=== PATIENT | female | born 2000 | race Caucasian/White ===

== ENCOUNTER 2023-05-24 09:45 | Outpatient (RCR) | payer OTHER, MEDICAID, SELFPAY ==
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
--- NOTE | 2023-03-29 09:30 | PT.OTN ---
Current Diagnoses Other specified disorders of muscle (03/29/23) Physical Therapy Treatment Note PT-OP-A Visit Information Start: 02/12/23 17:27 Freq: Status: Active Protocol: Document 03/29/23 08:03 LRN (Rec: 03/29/23 09:30 LRN [id number]) Out-Patient Physical Therapy Visit Information Visit Information Visit Type Treatment Note Visit Start Time 08:03 Visit Stop Time 09:00 Total Visit Minutes 57 Visit Number 12/29 Evaluation Information Evaluation Date 02/19/23 Precautions Precautions Seasonal allergies, intermittent jaw pain ( occurred after jumping out of a plane). PT-OP-B Current Condition Start: 02/12/23 17:27 Freq: Status: Active Protocol: Document 02/19/23 08:14 LRN (Rec: 02/19/23 09:32 LRN [id number]) Current Condition History of Current Condition Onset Date Age 18, 5 yrs ago. Current Complaints Sharp stabbing pain with palpation that can last for days. History of Current Condition Injury at age 18, had intense rubbing (foreplay), then sudden onset of pain in clitoral weber region (4 yrs ago) leaving it red and sore. Had not been a problem until recently is having pain. Is seeing a wool spotter and hoping PT might help to loosen her PF. States the nerve is not damaged but irritated. When stressed or depressed, feels more pain. 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 Has used topical cream that helped decrease the pain. Used Aquafor to help with skin health that helps. No hot tubbing. Won't swim except in lakes. 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 Treatment Goals Patient/Caregiver Goals Pt goal is to reduce the clitoral weber pain and learn self care to reduce or eliminate the pain. Personal Factors Other Personal Factors That May Effect No history of sexual Therapy/Recovery intercourse; therefore guarded in nature, hx of vaginal vaginosus. PT-OP-C Subjective Start: 02/12/23 17:27 Freq: Status: Active Protocol: Document 03/29/23 08:03 LRN (Rec: 03/29/23 09:30 LRN [id number]) OP-PT Subjective Patient Comments Patient Comments States the hair is irritating. The Aquaphor now is irrirating to put on clitoris. States the relatoinship prospect is causing stress. Had stressful situation with grandparents gone (needs personal support). States with stress the cold with hot/ cold was uncomfortable. PT-OP-I Pelvic Floor Start: 02/12/23 17:27 Freq: Status: Active Protocol: Document 02/19/23 08:14 LRN (Rec: 02/19/23 09:32 LRN [id number]) Pelvic Floor Assessment Urine Other Urinary Symptoms Relief of pain with urination. Full bladder has more sensitivity of clitoral weber when in pain all the time. Bowel Bowel Movement Frequency 1 Quinter Stool Chart Type 1-7 4 Pelvic Clock Pelvic Clock 12-3 Tenderness,Tightness Pelvic Clock 3-6 Tenderness,Tightness Pelvic Clock 6-9 Tenderness,Tightness Pelvic Clock 9-12 Tenderness,Tightness Pelvic Clock Other Tight in superficial ms and tender everywhere on the deeper PF muscles. Comments Pelvic Floor Comments Sharp stabbing pain with light touch, R side of weber more sensitive under. PT-OP-J Posture/Palpation/Skin Start: 02/12/23 17:27 Freq: Status: Active Protocol: Document 02/19/23 08:14 LRN (Rec: 02/19/23 09:32 LRN [id number]) Posture Evaluation Position Standing L-Spine Posture Increased Lordosis Comments Posture Comments Head tilt left, High L shoulder and scapula, increased lordosis, PT-OP-K Range of Motion Start: 02/12/23 17:27 Freq: Status: Active Protocol: Document 02/19/23 08:14 LRN (Rec: 02/19/23 09:32 LRN [id number]) Lumbar Spine Range of Motion Lumbar Spine Active Percentage Testing Position Standing Flexion 100 Extension 100 Rotation Left 100 Rotation Right 100 Lateral Flexion Left 100 Lateral Flexion Right 100 ROM Limitations Soft Tissue Tightness Hip Goniometric Range of Motion Hip Right Passive Testing Position Supine Abduction 30 Internal Rotation 45 External Rotation 75 Left Passive Testing Position Supine Abduction 30 Internal Rotation 35 External Rotation 85 PT-OP-M Strength Start: 02/12/23 17:27 Freq: Status: Active Protocol: Document 02/19/23 08:14 LRN (Rec: 02/19/23 09:32 LRN [id number]) Trunk Strength Trunk Manual Muscle Testing Core Stabilization Generally 5/5, pt able to maintain stability during all positioning for MMT of hips. Hip Strength Hip Manual Muscle Testing Right Comments All muscle groups 5/5 Left Comments All muscle groups 5/5 PT-OP-Q Treatments Start: 02/12/23 17:27 Freq: Status: Active Protocol: Document 03/29/23 08:03 LRN (Rec: 03/29/23 09:30 LRN [id number]) Manual Therapy Treatment Soft Tissue Mobilization Hip Adductors Body Location Hip Adductors distal to pubic bone Mobilization Type Myofascial Release, Oscillations Intensity/Depth Moderate Body Position Supine Comments R tigher than L. Abdomen Body Location Abdomen in area above pubic bone Mobilization Type Myofascial Release,Sustained Pressure Body Position Sup w/bolster Comments 15' Tight on R side; knee rolls to left along with Sideglide up and to the left. PF Body Location External w/focus on L side Mobilization Type Sustained Pressure Intensity/Depth superficial>moderate Body Position Hooklie Comments 15' L side increased redness of Labia Majora, mild edema in R mons pubis, small tender region in presence of white dot at clitoris that was place of pt's application of estrogen cream. 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 Discussed at length looking at lower body 1/2 to get familiar normal body tissues. Educated pt in self PF STM near clitoris for sideglide, upglide and rotation. Discussed other possible uses for skin health including coconut oil. Pt to discuss with referring practioner other natural forms of treatment for skin health. Discussed external information resources to include the hive podcast and suggestion of sex therapist that deals withn physical women's health conditions. Activities Self-Care/Home Management Activities I/S pt to perform self stretch to PF near clitoris for sideglide, upglide and rotation. Recommended pt seek yoga for exercise and encouraged abdominal stretching (upward dog). PT-OP-T Assessment and Plan Start: 02/12/23 17:27 Freq: Status: Active Protocol: Document 03/29/23 08:03 LRN (Rec: 03/29/23 09:30 LRN [id number]) Physical Therapy Assessment Goals Three Impairment PF tightness with pain on palpation Impairment PUF score 16 Short Term Goal (STG) Pt will be able to get full relaxation after PF contraction and educated in self stretching with wand. 03/05/23: Pt had minimal to no pain with palpatioin of the PF; therefore pt did not need education in self stretching with wand. 03/12/23: XS wand issued. Pt I /S in use of wand for light sustained pressure at external hymen. Hymen closed and tender to touch. STG Duration 03/28/23 progressed 03/12/23 ( needs ed in relaxation after PF ><) Motion Picture Set Up Worker Goal (LTG) Decrease PF pain with PF contraction around the PF clock to minimal areas of tenderness. 03/18/23: Pt reporting minimal discomfort around the PF clock. LTG Duration 04/30/23 (03/18/23: 1x reporting of just discomfort) Two Impairment Clitoral weber nerve pain. Impairment Pain rated 3/10 Short Term Goal (STG) Pt educated in self care pain management techniques (Cold compress, coconut oil) and vulvar/genital care. 03/05/23: Pt verbally educated in self care pain management with use of cold compress and discussion of using warm/cold compress, and discussed vulvar /gential care per education handout. 03/18/23: Pt using aquaphor ( vs coconut oil) for her pain/ dryness that she feels is working, and is doing hot/cold (compress) treatment to clitoris while in shower daily . STG Duration 03/28/23 (03/18/23: MET GOAL) Motion Picture Set Up Worker Goal (LTG) Reduce clitoral weber sharp pain with palpation. 03/29/23: Pain, but no did not c/o sharp pain. LTG Duration 04/30/23 improving 03/29/23 One Impairment Pt lacks an independent self care HEP. Short Term Goal (STG) Pt educated in proper transfers to lessen core abdominal pressure and vagal n relaxation techniques. 02/26/23: Educated pt in deep breathing for downtraining of sympathetic nervous system to reduce PF pain. STG Duration 03/28/23 progressed 02/26/23 (need transfer trng to lessen core abd press) Senior Care Goal (LTG) Pt will be independent in a self care HEP for PF relaxation and self care self care to reduce or eliminate PF pain (deep breathing and mindfulness education). 02/26/23: Pt I/S in use of deep breathing for downtraining of sympathetic nervous system to reduce PF pain. LTG Duration 04/30/23 progressed 02/26/23 ( need mindfulness education) Assessment Summary Assessment Pt initially with clitoral weber, labial minora & labial majora pain, mild redness at vaginal entrance laterally. Today, R abdomen is tight & L PF tight. L sided increase in redness of Labia Majora ( minora no redness), mild edema in R mons pubis, & tender region in presence of white dot at clitoris that may be where pt's application of estrogen cream was located. Pt to discuss with referring practioner possible other forms of treatment for skin health due to aquaphor being an irritant when dry and estrogen cream on clitoris where her pain is. Physical Therapy Plan Frequency and Duration Frequency of Treatment 1x/Week Duration of treatment (weeks) 10 Plan of Care Start Date 02/19/23 Plan of Care End Date 04/30/23 Next Visit Focus/Plan Next Note Type Treatment Note Next Visit Plan Next: Start with abdominal ( sphinx) and hip AD stretching. Recheck stretching with wand (get full relaxation after PF contraction-STG #3) and check for L sided areas of redness of external PF (STG #3), and check for abdominal soft tissue mobility (urachus) for symmetry. Education: transfer trng to lessen core abd pressure (STG #1). Educate in PF downtraining with mindfulness and vagal nerve relaxation/downtraining (STG #1). Issue HO for hip adductor & sphinx (abdominal) stretch, and if needed hot/cold handout (modified to warm/cool compress). Discuss squatting and lifting, sit to stand, and moving in bed using breathwork Discuss water intake. Monitor to improve L hip IR, R hip ER mobility and adductor tension. POC: PF/core relaxation and decr vagus n stim to decrease clitoral weber pain; improve hip mobility (L hip IR, R hip ER),
--- NOTE | 2023-04-09 10:29 | PT.OTN ---
Current Diagnoses Other specified disorders of muscle (04/09/23) Physical Therapy Treatment Note PT-OP-A Visit Information Start: 02/12/23 17:27 Freq: Status: Active Protocol: Document 04/09/23 08:07 LRN (Rec: 04/09/23 10:29 LRN [id number]) Out-Patient Physical Therapy Visit Information Visit Information Visit Type Treatment Note Visit Start Time 08:07 Visit Stop Time 08:55 Total Visit Minutes 50 Visit Number 12/29 Evaluation Information Evaluation Date 02/19/23 Precautions Precautions Seasonal allergies, intermittent jaw pain ( occurred after jumping out of a plane). PT-OP-B Current Condition Start: 02/12/23 17:27 Freq: Status: Active Protocol: Document 02/19/23 08:14 LRN (Rec: 02/19/23 09:32 LRN [id number]) Current Condition History of Current Condition Onset Date Age 18, 5 yrs ago. Current Complaints Sharp stabbing pain with palpation that can last for days. History of Current Condition Injury at age 18, had intense rubbing (foreplay), then sudden onset of pain in clitoral weber region (4 yrs ago) leaving it red and sore. Had not been a problem until recently is having pain. Is seeing a computer numeric control setter and hoping PT might help to loosen her PF. States the nerve is not damaged but irritated. When stressed or depressed, feels more pain. 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 Has used topical cream that helped decrease the pain. Used Aquafor to help with skin health that helps. No hot tubbing. [place] swim except in [place]. 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 Treatment Goals Patient/Caregiver Goals Pt goal is to reduce the clitoral weber pain and learn self care to reduce or eliminate the pain. Personal Factors Other Personal Factors That May Effect No history of sexual Therapy/Recovery intercourse; therefore guarded in nature, hx of vaginal vaginosus. PT-OP-C Subjective Start: 02/12/23 17:27 Freq: Status: Active Protocol: Document 04/09/23 08:07 LRN (Rec: 04/09/23 10:29 LRN [id number]) OP-PT Subjective Patient Comments Patient Comments [place] she has an irritated nerve. Tried doing pressure point treatmnets. Using med for past 2 days: meniciprin for the laceration, the L side is most sensitive areas. Now only provoked pain, when touching. Pain not present all the time. Neck feels constantly stiff. Has increased her fluid intake. PT-OP-I Pelvic Floor Start: 02/12/23 17:27 Freq: Status: Active Protocol: Document 04/09/23 08:07 LRN (Rec: 04/09/23 10:29 LRN [id number]) Pelvic Floor Assessment Comments Pelvic Floor Comments At intersection of Labia majora pt had pain with release of gentle pressure. No pain around surrounding areas. L side of Labia Major appeared smaller at top and tissue mildly dry. PT-OP-J Posture/Palpation/Skin Start: 02/12/23 17:27 Freq: Status: Active Protocol: Document 02/19/23 08:14 LRN (Rec: 02/19/23 09:32 LRN [id number]) Posture Evaluation Position Standing L-Spine Posture Increased Lordosis Comments Posture Comments Head tilt left, High L shoulder and scapula, increased lordosis, PT-OP-K Range of Motion Start: 02/12/23 17:27 Freq: Status: Active Protocol: Document 02/19/23 08:14 LRN (Rec: 02/19/23 09:32 LRN [id number]) Lumbar Spine Range of Motion Lumbar Spine Active Percentage Testing Position Standing Flexion 100 Extension 100 Rotation Left 100 Rotation Right 100 Lateral Flexion Left 100 Lateral Flexion Right 100 ROM Limitations Soft Tissue Tightness Hip Goniometric Range of Motion Hip Right Passive Testing Position Supine Abduction 30 Internal Rotation 45 External Rotation 75 Left Passive Testing Position Supine Abduction 30 Internal Rotation 35 External Rotation 85 PT-OP-M Strength Start: 02/12/23 17:27 Freq: Status: Active Protocol: Document 02/19/23 08:14 LRN (Rec: 02/19/23 09:32 LRN [id number]) Trunk Strength Trunk Manual Muscle Testing Core Stabilization Generally 5/5, pt able to maintain stability during all positioning for MMT of hips. Hip Strength Hip Manual Muscle Testing Right Comments All muscle groups 5/5 Left Comments All muscle groups 5/5 PT-OP-Q Treatments Start: 02/12/23 17:27 Freq: Status: Active Protocol: Document 04/09/23 08:07 LRN (Rec: 04/09/23 10:29 [facility] [id number]) Therapeutic Exercises Supine Exercises Vagus n stim Supine Exercise Name Umm's, Ahhh's in neutral and neck ext. Side left Reps/Minutes 9' Comments Cuing for vibtration in throat . Trying low (good) and high sounds(good ah) Scalene neck stretches Supine Exercise Name Passive Scalene anterior & medial stretch Side bilateral Reps/Minutes 12' Comments L tighter than R. Cuing for 3 breath stretch when positioned Piriformis stretch Supine Exercise Name Piriformis stretch - Myokinesthetic stretch Side left Reps/Minutes 3' Comments One time trP not reproduced Manual Therapy Treatment Soft Tissue Mobilization Anterior trunk in Prone Body Location L Anterior lower trunk: Stabilized Sacrum, w/active foot drops to R Mobilization Type Myofascial Release Body Position Prone Abdomen Body Location Lower abdomen > inferior pubic bone Mobilization Type Myofascial Release Intensity/Depth Superficial Body Position Legs on bolster & hooklying Comments STM abdomen: superior glide f/ b active L>R hip rotation and BKFO>IR of hips. Self-Care/Home Management Treatment Education Other Education Discussed use of more lubrication for self assessment of pain under clitoris to minimize discomfort from finger sticking to issues. Recommended pt talk to physician regarding tissue dryness in the area. Activities Self-Care/Home Management Activities I/S pt to add general ex to her home program to increase blood flow and tissue health to the area as the pt reports increase in stim results in stretch discomfort in the area . PT-OP-T Assessment and Plan Start: 02/12/23 17:27 Freq: Status: Active Protocol: Document 04/09/23 08:07 LRN (Rec: 04/09/23 10:29 [facility] [id number]) Physical Therapy Assessment Goals Three Impairment PF tightness with pain on palpation Impairment PUF score 16 Short Term Goal (STG) Pt will be able to get full relaxation after PF contraction and educated in self stretching with wand. 03/05/23: Pt had minimal to no pain with palpatioin of the PF; therefore pt did not need education in self stretching with wand. 04/09/23: Pt I/S to focus on PF relaxation after PF contraction ex's. 03/12/23: XS wand issued. Pt I /S in use of wand for light sustained pressure at external hymen. Hymen closed and tender to touch. STG Duration 03/28/23 progressed 04/09/23 (needs full relaxation after PF ><) [facility] Goal (LTG) Decrease PF pain with PF contraction around the PF clock to minimal areas of tenderness. 03/18/23: Pt reporting minimal discomfort around the PF clock. LTG Duration 04/30/23 (03/18/23: 1x reporting of just discomfort) Two Impairment Clitoral weber nerve pain. Impairment Pain rated 3/10 Short Term Goal (STG) Pt educated in self care pain management techniques (Cold compress, coconut oil) and vulvar/genital care. 03/05/23: Pt verbally educated in self care pain management with use of cold compress and discussion of using warm/cold compress, and discussed vulvar /gential care per education handout. 03/18/23: Pt using aquaphor ( vs coconut oil) for her pain/ dryness that she feels is working, and is doing hot/cold (compress) treatment to clitoris while in shower daily . STG Duration 03/28/23 (03/18/23: MET GOAL) Pill Machine Operator Goal (LTG) Reduce clitoral weber sharp pain with palpation. 03/29/23: Pain, but no did not c/o sharp pain. LTG Duration 04/30/23 improving 03/29/23 One Impairment Pt lacks an independent self care HEP. Short Term Goal (STG) Pt educated in proper transfers to lessen core abdominal pressure and vagal n relaxation techniques. 02/26/23: Educated pt in deep breathing for downtraining of sympathetic nervous system to reduce PF pain. 04/09/23: Pt educated in vagal nerve relaxation/downtraining . STG Duration 03/28/23 progressed 04/09/23 (need transfer trng to lessen core abd press) Pill Machine Operator Goal (LTG) Pt will be independent in a self care HEP for PF relaxation and self care self care to reduce or eliminate PF pain (deep breathing and mindfulness education). 02/26/23: Pt I/S in use of deep breathing for downtraining of sympathetic nervous system to reduce PF pain. LTG Duration 04/30/23 progressed 02/26/23 ( need mindfulness education) Assessment Summary Assessment Pt presents with no c/o pelvic pain except with pressure release off of intersection of Labia Majora. Pt reporting she has increased her fluid intake. She has a stiff L neck and possible vagal nerve restriction; tightness of L hip muscles. Pt may be sligly swollen in area of clitoris dry tissues causing pain on release of pressure. Pt having less pain overall. Physical Therapy Plan Frequency and Duration Frequency of Treatment 1x/Week Duration of treatment (weeks) 10 Plan of Care Start Date 02/19/23 Plan of Care End Date 04/30/23 Next Visit Focus/Plan Next Note Type Treatment Note Next Visit Plan Next: Education: transfer trng to lessen core abd pressure (STG #1). Start manual with self abdominal stretch (sphinx) and hip AD, L Piriformis/lat hip stretching. Review vagal nerve relaxation/downtraining. Recheck stretching with wand ( get full relaxation after PF contraction-STG #3) and check for L sided areas of redness of external PF (STG #3), Assess for LTG #3. Check for abdominal soft tissue mobility (urachus) for symmetry. Educate in PF downtraining with mindfulness (STG #1). Issue HO for hip adductor & sphinx (abdominal) stretch. Discuss squatting and lifting, sit to stand, and moving in bed using breathwork. Monitor to improve L hip IR, R hip ER mobility and adductor tension. POC: PF/core relaxation and decr vagus n stim to decrease clitoral weber pain; improve hip mobility (L hip IR, R hip ER),
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
--- NOTE | 2023-04-30 18:04 | PT.OTN ---
Current Diagnoses Other specified disorders of muscle (04/30/23) Physical Therapy Treatment Note PT-OP-A Visit Information Start: 02/12/23 17:27 Freq: Status: Active Protocol: Document 04/30/23 09:30 LRN (Rec: 04/30/23 10:24 LRN [id number]) Out-Patient Physical Therapy Visit Information Visit Information Visit Type Progress Note Visit Start Time 09:30 Visit Stop Time 10:15 Total Visit Minutes 45 Visit Number 03/31 Evaluation Information Evaluation Date 02/19/23 Precautions Precautions Seasonal allergies, intermittent jaw pain ( occurred after jumping out of a plane). PT-OP-B Current Condition Start: 02/12/23 17:27 Freq: Status: Active Protocol: Document 02/19/23 08:14 LRN (Rec: 02/19/23 09:32 LRN [id number]) Current Condition History of Current Condition Onset Date Age 18, 5 yrs ago. Current Complaints Sharp stabbing pain with palpation that can last for days. History of Current Condition Injury at age 18, had intense rubbing (foreplay), then sudden onset of pain in clitoral weber region (4 yrs ago) leaving it red and sore. Had not been a problem until recently is having pain. Is seeing a architectural design professor and hoping PT might help to loosen her PF. States the nerve is not damaged but irritated. When stressed or depressed, feels more pain. 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 Has used topical cream that helped decrease the pain. Used Aquafor to help with skin health that helps. No hot tubbing. Won't swim except in lakes. 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 Treatment Goals Patient/Caregiver Goals Pt goal is to reduce the clitoral weber pain and learn self care to reduce or eliminate the pain. Personal Factors Other Personal Factors That May Effect No history of sexual Therapy/Recovery intercourse; therefore guarded in nature, hx of vaginal vaginosus. PT-OP-C Subjective Start: 02/12/23 17:27 Freq: Status: Active Protocol: Document 04/30/23 09:30 LRN (Rec: 04/30/23 10:24 LRN [id number]) OP-PT Subjective Patient Comments Patient Comments Brought papers that MD gave her. States the putting on oils was going well until yesterday had more pain. States stretching with the wand she is kind of numb on the L side. Patient Questionnaires Pelvic Pain and Urgency/Frequency Patient Symptom Scale Pelvic Pain Score 11-14 (was initially 16) OP-PT Pain Assessment Pain Assessment Grid Paper Pain Assessment Grid Completed Yes Location PF Pain Location Details Clitoral weber, L labia minora at vaginal opening & 4-5 of PF clock Intensity 2 Scale Used Numeric (0 - 10) Frequency Intermittent Other Pain Aggravating Factors Pressure/palpation Pain Alleviating Factors Meditation Other Pain Alleviating Factors hot/cold home treatment PT-OP-I Pelvic Floor Start: 02/12/23 17:27 Freq: Status: Active Protocol: Document 04/09/23 08:07 LRN (Rec: 04/09/23 10:29 LRN [id number]) Pelvic Floor Assessment Comments Pelvic Floor Comments At intersection of Labia majora pt had pain with release of gentle pressure. No pain around surrounding areas. L side of Labia Major appeared smaller at top and tissue mildly dry. PT-OP-J Posture/Palpation/Skin Start: 02/12/23 17:27 Freq: Status: Active Protocol: Document 02/19/23 08:14 LRN (Rec: 02/19/23 09:32 LRN [id number]) Posture Evaluation Position Standing L-Spine Posture Increased Lordosis Comments Posture Comments Head tilt left, High L shoulder and scapula, increased lordosis, PT-OP-K Range of Motion Start: 02/12/23 17:27 Freq: Status: Active Protocol: Document 04/22/23 08:02 LRN (Rec: 04/22/23 10:32 LRN [id number]) Hip Goniometric Range of Motion Hip Right Passive Testing Position Supine Abduction 50 Internal Rotation 35 External Rotation 85 Comments Eliceo Test position for passive hip Ext: 15 deg's Left Passive Testing Position Supine Abduction 40 Internal Rotation 35 External Rotation 85 Comments Eliceo Test position for passive hip Ext: 15 deg's. PT-OP-M Strength Start: 02/12/23 17:27 Freq: Status: Active Protocol: Document 02/19/23 08:14 LRN (Rec: 02/19/23 09:32 LRN [id number]) Trunk Strength Trunk Manual Muscle Testing Core Stabilization Generally 5/5, pt able to maintain stability during all positioning for MMT of hips. Hip Strength Hip Manual Muscle Testing Right Comments All muscle groups 5/5 Left Comments All muscle groups 5/5 PT-OP-Q Treatments Start: 02/12/23 17:27 Freq: Status: Active Protocol: Document 04/30/23 09:30 LRN (Rec: 04/30/23 10:24 LRN [id number]) Therapeutic Exercises Prone Exercises SARAH Prone Exercise Name Sphinx with neck stretch ( vagus n glide) Side bilateral Reps/Minutes 10 SH (3 breaths) x 10 Comments Extra time taken with cuing for positioning, hold time and rest position. Self-Care/Home Management Treatment Education Other Education Discussed MD's handouts of foods with low oxylate for pt eat (avoiding high oxylate foods). PT-OP-T Assessment and Plan Start: 02/12/23 17:27 Freq: Status: Active Protocol: Document 04/30/23 09:30 LRN (Rec: 04/30/23 10:24 LRN [id number]) Physical Therapy Assessment Goals Three Impairment PF tightness with pain on palpation Impairment PUF score 16 Short Term Goal (STG) Pt will be able to get full relaxation after PF contraction and educated in self stretching with wand. 03/05/23: Pt had minimal to no pain with palpatioin of the PF; therefore pt did not need education in self stretching with wand. 04/09/23: Pt I/S to focus on PF relaxation after PF contraction ex's. 03/12/23: XS wand issued. Pt I /S in use of wand for light sustained pressure at external hymen. Hymen closed and tender to touch. STG Duration 3 wks-05/13/23 progressed 04/09/23 (needs full relaxation after PF ><) Long-Term Goal (LTG) Decrease PF pain with PF contraction around the PF clock to minimal areas of tenderness. 03/18/23: Pt reporting minimal discomfort around the PF clock. 04/30/23: Minimal tenderness around PF clock. Pt is very tender at L Obturator Internus with internal stretching. LTG Duration 5 wks-06/06/23 (04/30/23: min discomfort, tender left OI ) Two Impairment Clitoral weber nerve pain. Impairment Pain rated 3/10 Short Term Goal (STG) Pt educated in self care pain management techniques (Cold compress, coconut oil) and vulvar/genital care. 03/05/23: Pt verbally educated in self care pain management with use of cold compress and discussion of using warm/cold compress, and discussed vulvar /gential care per education handout. 03/18/23: Pt using aquaphor ( vs coconut oil) for her pain/ dryness that she feels is working, and is doing hot/cold (compress) treatment to clitoris while in shower daily . STG Duration 03/28/23 (03/18/23: MET GOAL) Long-Term Goal (LTG) Reduce clitoral weber sharp pain with palpation. 03/29/23: Pain, but no did not c/o sharp pain. LTG Duration 5 wks-06/06/23 improving One Impairment Pt lacks an independent self care HEP. Short Term Goal (STG) Pt educated in proper transfers to lessen core abdominal pressure and vagal n relaxation techniques. 02/26/23: Educated pt in deep breathing for downtraining of sympathetic nervous system to reduce PF pain. 04/09/23: Pt educated in vagal nerve relaxation/downtraining . 04/16/23: Educated pt in proper transfers to lessen core abdominal pressure STG Duration 03/28/23 (04/16/23: MET GOAL ) Binding End Stitcher Goal (LTG) Pt will be independent in a self care HEP for PF relaxation and self care self care to reduce or eliminate PF pain (deep breathing and mindfulness education). 02/26/23: Pt I/S in use of deep breathing for downtraining of sympathetic nervous system to reduce PF pain. 04/16/23: HEP: Piriformis & Lateral hip stretch, Longsit Hamstring and V-sit hip AD stretch and Sphinx abdominal stretch. LTG Duration 5 wks-06/06/23 progressed 04/29 (need mindfulness education) Assessment Summary Assessment 23 yo female with clitoral weber, minimal tenderness 2 to 5 of the PF Clock, R side of clitoral weber at location of laceration. Symptoms of pudendal nerve > dorsal nerve irritation, possible due to lumbar lordosis promoting anterior PF activiation. She also appears to have a pelvic obiliquity as noted with palpation of anterior pubic symphysis. The pt will benefit from further skilled physical therapy for correction of pelvic obliquity , LB rehab and PF stretching and PF care education until pt able to manage her PF tightness on her HEP. Physical Therapy Plan Frequency and Duration Frequency of Treatment 1x/Week Duration of treatment (weeks) 5 Plan of Care Start Date 04/30/23 Plan of Care End Date 06/06/23 Next Visit Focus/Plan Next Note Type Treatment Note Next Visit Plan Next: Sacral balancing. Review vagal nerve relaxation/ downtraining. Recheck stretching with wand ( get full relaxation after PF contraction-STG #3) and check for L sided areas of redness of external PF (STG #3), Assess for LTG #3. Check for abdominal soft tissue mobility (urachus) for symmetry. Educate in PF downtraining with mindfulness (STG #1). Discuss squatting and lifting, sit to stand, and moving in bed using breathwork. Monitor to improve L hip AD & Iliopsoas tension. POC: PF/core relaxation and decr vagus n stim to decrease clitoral weber pain; improve hip mobility (L hip IR, R hip ER).
--- NOTE | 2023-05-06 09:52 | PT-OP ANOTE ---
Per phone conversation, pt notified of missed appt and of next appt time and date.
--- NOTE | 2023-05-24 12:10 | PT.OTN ---
Current Diagnoses Other specified disorders of muscle (05/24/23) Physical Therapy Treatment Note PT-OP-A Visit Information Start: 02/12/23 17:27 Freq: Status: Active Protocol: Document 05/24/23 09:53 LRN (Rec: 05/24/23 12:08 LRN [id number]) Out-Patient Physical Therapy Visit Information Visit Information Visit Type Treatment Note Visit Start Time 09:53 Visit Stop Time 10:34 Total Visit Minutes 43 Visit Number 04/30 Evaluation Information Evaluation Date 02/19/23 Precautions Precautions Seasonal allergies, intermittent jaw pain ( occurred after jumping out of a plane). PT-OP-B Current Condition Start: 02/12/23 17:27 Freq: Status: Active Protocol: Document 02/19/23 08:14 LRN (Rec: 02/19/23 09:32 LRN [id number]) Current Condition History of Current Condition Onset Date Age 18, 5 yrs ago. Current Complaints Sharp stabbing pain with palpation that can last for days. History of Current Condition Injury at age 18, had intense rubbing (foreplay), then sudden onset of pain in clitoral weber region (4 yrs ago) leaving it red and sore. Had not been a problem until recently is having pain. Is seeing a cna caregiver and hoping PT might help to loosen her PF. States the nerve is not damaged but irritated. When stressed or depressed, feels more pain. 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 Has used topical cream that helped decrease the pain. Used Aquafor to help with skin health that helps. No hot tubbing. [place] swim [place] in [place]. 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 Treatment Goals Patient/Caregiver Goals Pt goal is to reduce the clitoral weber pain and learn self care to reduce or eliminate the pain. Personal Factors Other Personal Factors That May Effect No history of sexual Therapy/Recovery intercourse; therefore guarded in nature, hx of vaginal vaginosus. PT-OP-C Subjective Start: 02/12/23 17:27 Freq: Status: Active Protocol: Document 05/24/23 09:53 LRN (Rec: 05/24/23 12:08 LRN [id number]) OP-PT Subjective Patient Comments Patient Comments States in November hit her R jaw ( location of Vagus nerve) and in January ursula jumped and caused more jaw pressure, and chewing bars may be causing neck pain . Clitoral Pain is really not there. Patient Questionnaires Pelvic Pain and Urgency/Frequency Patient Symptom Scale Pelvic Pain Score 4 PT-OP-I Pelvic Floor Start: 02/12/23 17:27 Freq: Status: Active Protocol: Document 04/09/23 08:07 LRN (Rec: 04/09/23 10:29 LRN [id number]) Pelvic Floor Assessment Comments Pelvic Floor Comments At intersection of Labia majora pt had pain with release of gentle pressure. No pain around surrounding areas. L side of Labia Major appeared smaller at top and tissue mildly dry. PT-OP-J Posture/Palpation/Skin Start: 02/12/23 17:27 Freq: Status: Active Protocol: Document 02/19/23 08:14 LRN (Rec: 02/19/23 09:32 LRN [id number]) Posture Evaluation Position Standing L-Spine Posture Increased Lordosis Comments Posture Comments Head tilt left, High L shoulder and scapula, increased lordosis, PT-OP-K Range of Motion Start: 02/12/23 17:27 Freq: Status: Active Protocol: Document 04/22/23 08:02 LRN (Rec: 04/22/23 10:32 LRN [id number]) Hip Goniometric Range of Motion Hip Right Passive Testing Position Supine Abduction 50 Internal Rotation 35 External Rotation 85 Comments Eliceo Test position for passive hip Ext: 15 deg's Left Passive Testing Position Supine Abduction 40 Internal Rotation 35 External Rotation 85 Comments Eliceo Test position for passive hip Ext: 15 deg's. PT-OP-M Strength Start: 02/12/23 17:27 Freq: Status: Active Protocol: Document 02/19/23 08:14 LRN (Rec: 02/19/23 09:32 LRN [id number]) Trunk Strength Trunk Manual Muscle Testing Core Stabilization Generally 5/5, pt able to maintain stability during all positioning for MMT of hips. Hip Strength Hip Manual Muscle Testing Right Comments All muscle groups 5/5 Left Comments All muscle groups 5/5 PT-OP-Q Treatments Start: 02/12/23 17:27 Freq: Status: Active Protocol: Document 05/24/23 09:53 LRN (Rec: 05/24/23 12:08 [facility] [id number]) Therapeutic Exercises Supine Exercises Mindfulness ex Supine Exercise Name Breathing with rolling of shoulders, & focus of relaxation of PF Reps/Minutes 10' PF>Relaxation Supine Exercise Name PF contraction f/b PF relaxation Comments Dorsal side of hand place on perineum with cuing of relaxation. Vagus n stim Supine Exercise Name Verbal Review Manual Therapy Treatment Soft Tissue Mobilization Obturator Internus Body Location OI externally Mobilization Type Sustained Pressure Body Position Supine Comments No significant tenderness noted. Self-Care/Home Management Treatment Education Other Education Educated and discussed mindfulness, effect of chronic stress on health and the brain, and reviewed how to use use mindfulness as an exercise. Discussed at length relationships in regards to pressure on PF region and how to avoid increasing pain (use of padding, pt discussion of her using labia minora as protection). Recommended pt seek Psychologists referral if needing help with addressing hesitation/concerns with relationships. Activities Self-Care/Home Management Activities Discussion at length pt's self care program: -use of coconut oil on clitoral weber, how to apply, avoiding rubbing underneath weber and light pressure to avoid reigniting pain. -reviewed genital hygiene. PT-OP-T Assessment and Plan Start: 02/12/23 17:27 Freq: Status: Active Protocol: Document 05/24/23 09:53 LRN (Rec: 05/24/23 12:08 [facility] [id number]) Physical Therapy Assessment Goals Three Impairment PF tightness with pain on palpation Impairment PUF score 16 Short Term Goal (STG) Pt will be able to get full relaxation after PF contraction and educated in self stretching with wand. 03/05/23: Pt had minimal to no pain with palpatioin of the PF; therefore pt did not need education in self stretching with wand. 04/09/23: Pt I/S to focus on PF relaxation after PF contraction ex's. 03/12/23: XS wand issued. Pt I /S in use of wand for light sustained pressure at external hymen. Hymen closed and tender to touch. 05/24/23: Pt able to demonstrate ability to contract PF and relax, although pt not feeling full relaxation. PUF score is 4. STG Duration 3 wks-05/13/23 progressed 04/09/23 (needs full relaxation after PF ><) Skilled Nursing Goal (LTG) Decrease PF pain with PF contraction around the PF clock to minimal areas of tenderness. 03/18/23: Pt reporting minimal discomfort around the PF clock. 04/30/23: Minimal tenderness around PF clock. Pt is very tender at L Obturator Internus with internal stretching. 05/24/23: Pt is not tender at L OI externally and pt notes no PF tenderness with walking. LTG Duration 5 wks-06/06/23 (05/24/23: MET GOAL) Two Impairment Clitoral weber nerve pain. Impairment Pain rated 3/10 Short Term Goal (STG) Pt educated in self care pain management techniques (Cold compress, coconut oil) and vulvar/genital care. 03/05/23: Pt verbally educated in self care pain management with use of cold compress and discussion of using warm/cold compress, and discussed vulvar /gential care per education handout. 03/18/23: Pt using aquaphor ( vs coconut oil) for her pain/ dryness that she feels is working, and is doing hot/cold (compress) treatment to clitoris while in shower daily . STG Duration 03/28/23 (03/18/23: MET GOAL) Skilled Nursing Goal (LTG) Reduce clitoral weber sharp pain with palpation. 03/29/23: Pain, but no did not c/o sharp pain. 05/24/23: Pain under clitoris directly in area of initial tear, otherwise no pain. LTG Duration 5 wks-06/06/23 (05/24/23: Partially met goal) One Impairment Pt lacks an independent self care HEP. Short Term Goal (STG) Pt educated in proper transfers to lessen core abdominal pressure and vagal n relaxation techniques. 02/26/23: Educated pt in deep breathing for downtraining of sympathetic nervous system to reduce PF pain. 04/09/23: Pt educated in vagal nerve relaxation/downtraining . 04/16/23: Educated pt in proper transfers to lessen core abdominal pressure STG Duration 03/28/23 (04/16/23: MET GOAL ) Skilled Nursing Goal (LTG) Pt will be independent in a self care HEP for PF relaxation and self care self care to reduce or eliminate PF pain (deep breathing and mindfulness education). 02/26/23: Pt I/S in use of deep breathing for downtraining of sympathetic nervous system to reduce PF pain. 04/16/23: HEP: Piriformis & Lateral hip stretch, Longsit Hamstring and V-sit hip AD stretch and Sphinx abdominal stretch. 05/24/23: Issued and discussed mindfulness training with handout issued. LTG Duration 5 wks-06/06/23 (05/24/23: MET GOAL) Assessment Summary Assessment Pt is a 23 yo female who initially presented with clitoral weber, labial minora & labial majora pain, mild redness at vaginal entrance laterally, and pain 2 to 11 of the PF Clock. She has responded well with physical therapy as her tissues appear to have healed and reduced in swelling and pain. She reports pain directly in the area of her initial tear ( under clitoral weber), possibly related to scar tissue as she appears to have healed nicely . The pt appears to have a good understanding of her self care program and ex's. The pt is ready for discharge to her home program. Physical Therapy Plan Discharge Physical Therapy Discharge Comments Pt has met most of her goals and is able to manage her pain on a self care program. Thank you for your referral.
== END 2023-05-29 10:42 | disposition home or self-care (01) ==
LOC: PHYS 09:45
PROVIDERS: Family Provider Nurse Practitioner Family; PCP Nurse Practitioner Family; Referring Provider Nurse Practitioner Family; Visit Provider Nurse Practitioner Family
DX: M62.89 Other specified disorders of muscle (principal)
CPT/HCPCS: 97110; 97140; 97162; 97535